=== PATIENT | female | born 1950 | race Hispanic/Latino ===

== ENCOUNTER 2018-05-07 07:15 | Day surgery (SDC) | payer OTHER ==
[2018-05-05 15:47] VITALS: BP 125/82
[2018-05-05 16:18] LABS: BASOPHILS % (AUTO) 0.4 % (0.0-5.0); EOSINOPHILS % (AUTO) 1.1 % (0.0-8.0); MEAN CORPUSCULAR HEMOGLOBIN 32.4 pg (27.0-33.0); MEAN CORPUSCULAR HGB CONC 34.4 g/dL (32.0-36.0); MEAN CORPUSCULAR VOLUME 94.3 fL (79-99); MONOCYTES % (AUTO) 4.3 % (3.0-13.0); NEUTROPHILS % (AUTO) 57.2 % (40.0-77.0); NUCLEATED RED BLOOD CELLS 0.1 % (0.0-0.19); PLATELET COUNT (AUTO) 302 K/uL (130-400); RED BLOOD CELL COUNT(AUTO) 3.93 MIL/uL (4.00-5.50); RED CELL DISTRIBUTION WIDTH 13.1 % (11.0-15.5); WHITE BLOOD COUNT (AUTO) 7.2 K/uL (4.8-10.8)
[2018-05-05 16:30] LABS: CREATININE 0.8 mg/dL (0.5-1.5); POTASSIUM 4.2 mmol/L (3.5-5.1)
[2018-05-05 16:37] LABS: APPEARANCE,URINE Clear (CLEAR); BILIRUBIN,URINE Negative (NEGATIVE); COLOR,URINE Yellow (YELLOW); GLUCOSE, URINE (UA) Negative (NEGATIVE); KETONES,URINE Negative (NEGATIVE); LEUKOCYTE ESTERASE ,URINE Negative (NEGATIVE); NITRATE,URINE Negative (NEGATIVE); OCCULT BLOOD,URINE Negative (NEGATIVE); PH,URINE 6.5 (5.0-8.0); PROTEIN,URINE Negative (NEGATIVE)
[~2018-05-07] VITALS: Ht 157.5 cm; Wt 66.9 kg
[2018-05-07] VITALS (13 sets, daily range): BP systolic 105–127; BP diastolic 65–83
[~2018-05-07 07:15] MED LIST: ATOR10TA69 PO; BENA20TA10 PO; BUPR-47 PO; GENTAMICIN 80 MG/NS 100 ML PB 100 ML IV PRN; HYDR12.530 PO; METF-444 PO
[2018-05-07] MEDS ORDERED: SODIUM CHLORIDE 0.9% 1000ML 1,000 ML IV ONE (07:55)
[2018-05-07] MEDS ORDERED: GENTAMICIN SULFATE 80 MG/2 ML VIAL ONE (07:55)
[2018-05-07] MEDS ORDERED: MITOMYCIN 40 MG VIAL ONE ×2 (08:00→10:31)
[2018-05-07] MEDS: CEFTRIAXONE SODIUM 1 GM IVP ONE ×2 (08:41→10:15)
[2018-05-07] MEDS ORDERED: DEXAMETHASONE SOD PHOSPHATE 10MG/ML 1ML VIAL ONE (09:44)
[2018-05-07] MEDS ORDERED: LIDOCAINE PF 2% 5ML ABBOJECT ONE (09:44)
[2018-05-07] MEDS ORDERED: FENTANYL CITRATE PF 50 MCG/1 ML 2ML VIAL ONE (09:44)
[2018-05-07] MEDS ORDERED: ONDANSETRON HCL 4 MG/2 ML VIAL ONE (09:44)
[2018-05-07] MEDS ORDERED: PROPOFOL 10 MG/ML 20ML VIAL IV ONE (09:44)
[2018-05-07] MEDS ORDERED: NEOSTIGMINE 5MG/5ML SYR IV ONE (09:45)
[2018-05-07] MEDS ORDERED: ROCURONIUM 10MG/1ML SYR 10 MG/ML ML ONE (09:45)
[2018-05-07] MEDS ORDERED: MIDAZOLAM HCL 1 MG/ML 2ML VIAL ONE (09:45)
[2018-05-07] MEDS ORDERED: EPHEDRINE SULFATE 50 MG/ML AMPULE ONE (10:34)
[2018-05-07] MEDS ORDERED: MEPERIDINE-PF 25 MG/ML SYG ONE (11:08)
== END 2018-05-07 12:49 | disposition home or self-care (01) ==
LOC: DAH 07:15 → SUH 07:15
PROVIDERS: ATTEND Urology
DX: C67.5 Malignant neoplasm of bladder neck (principal); I10 Essential (primary) hypertension; E11.9 Type 2 diabetes mellitus without complications; F32.9 Major depressive disorder, single episode, unspecified; Z90.710 Acquired absence of both cervix and uterus; Z87.891 Personal history of nicotine dependence; Z79.899 Other long term (current) drug therapy; K76.0 Fatty (change of) liver, not elsewhere classified; E78.00 Pure hypercholesterolemia, unspecified; I25.10 Atherosclerotic heart disease of native coronary artery without angina pectoris; Z82.49 Family history of ischemic heart disease and other diseases of the circulatory system
CPT/HCPCS: 36415; 52234; 71045; 80048; 81003; 82948 ×2; 85025; 87088; 88305; 93005; A4218; A4354; A4358; A4600; J0696; J1100; J1580; J2001; J2175; J2250; J2405; J2704; J2710; J3010; J3490; J7030; J9280

== ENCOUNTER → 2019-05-05 | Outpatient (CLI) | payer OTHER ==
[~2019-05-05] MED LIST changes: -GENTAMICIN 80 MG/NS 100 ML PB 100 ML IV PRN
== END | disposition home or self-care (01) ==
LOC: OIH 12:13
PROVIDERS: ATTEND Internal Medicine
DX: M19.042 Primary osteoarthritis, left hand (principal); M19.041 Primary osteoarthritis, right hand; M25.741 Osteophyte, right hand; M25.742 Osteophyte, left hand
CPT/HCPCS: 73130

== ENCOUNTER 2019-11-25 04:39 | Emergency (ER) | payer OTHER ==
[2019-11-25 05:31] LABS: BASOPHILS % (AUTO) 0.2 % (0.0-5.0); EOSINOPHILS % (AUTO) 0.6 % (0.0-8.0); HEMATOCRIT 36.2 % (36-48); LYMPHOCYTES % (AUTO) 11.2 % (21.0-51.0); MEAN CORPUSCULAR HEMOGLOBIN 31.9 pg (27.0-33.0); MONOCYTES % (AUTO) 3.3 % (3.0-13.0); NEUTROPHILS % (AUTO) 84.2 % (40.0-77.0); PLATELET COUNT (AUTO) 277 K/uL (130-400); RED BLOOD CELL COUNT(AUTO) 3.85 MIL/uL (4.00-5.50); RED CELL DISTRIBUTION WIDTH 12.5 % (11.0-15.5); WHITE BLOOD COUNT (AUTO) 11.9 K/uL (4.8-10.8)
[2019-11-25 05:41] LABS: APPEARANCE,URINE Clear (CLEAR); BILIRUBIN,URINE Negative (NEGATIVE); COLOR,URINE Yellow (YELLOW); GLUCOSE, URINE (UA) Negative (NEGATIVE); KETONES,URINE Negative (NEGATIVE); LEUKOCYTE ESTERASE ,URINE Trace (NEGATIVE); NITRATE,URINE Negative (NEGATIVE); OCCULT BLOOD,URINE Negative (NEGATIVE); PROTEIN,URINE Negative (NEGATIVE); UROBILINOGEN,URINE 0.2 mg/dL (0.2-1.0)
[2019-11-25 05:41] LABS: CREATININE 0.8 mg/dL (0.5-1.5); POTASSIUM 3.6 mmol/L (3.5-5.1)
[2019-11-25 05:42] LABS: INR 0.89 (0.85-1.15); PARTIAL THROMBOPLASTIN TIME 27.1 SEC (26.3-35.5); PROTHROMBIN TIME 9.7 SEC (9.6-11.6)
[2019-11-25] MEDS ORDERED: SODIUM CHLORIDE 0.9% 1000ML 2,000 ML IV ONE (05:44)
[2019-11-25 05:46] LABS: ALBUMIN 3.7 g/dL (3.5-5.0); BILIRUBIN,TOTAL 0.6 mg/dL (0.2-1.0); TOTAL PROTEIN, SERUM 8.3 g/dL (6.0-8.3)
[2019-11-25 05:47] LABS: BACTERIA,URINE Few /HPF (None Seen); RBC,URINE 0-1 /HPF (0-1)
[2019-11-25] MEDS ORDERED: IOHEXOL-350 75 ML VIAL IV ONE (06:32)
[2019-11-25] MEDS ORDERED: METRONIDAZOLE 500MG/100ML BAG 100 ML ONE (07:54)
[2019-11-25] MEDS ORDERED: LEVOFLOXACIN 500 MG TABLET ONE (07:54)
[2019-11-25] MEDS ORDERED: KETOROLAC TROMETHAMINE 30MG/ML ONE (08:10)
[2019-11-25] MEDS ORDERED: DiphenhydrAMINE HCL 50 MG/ML VIAL ONE (08:10)
[2019-11-25] MEDS ORDERED: HYDROCODONE/ACETAMINOPHEN 5/325 MG TAB ONE (08:11)
== END 2019-11-25 09:52 | disposition home or self-care (01) ==
LOC: EDH 04:39
DX: K57.92 Diverticulitis of intestine, part unspecified, without perforation or abscess without bleeding (principal); E11.9 Type 2 diabetes mellitus without complications; I10 Essential (primary) hypertension; Z90.710 Acquired absence of both cervix and uterus; Z72.0 Tobacco use
CPT/HCPCS: 36415; 74177; 80053; 81001; 82550; 83605; 83690; 84484; 85025; 85610; 85730; 87040 ×2; 87088; 93005; 96365; 96366; 96375; 99285; J1200; J1885; J3490; J7030; Q9967

== ENCOUNTER → 2023-09-29 | Outpatient (CLI) | payer OTHER ==
[~2023-09-29] MED LIST changes: +ASPI-1005 PO; -ATOR10TA69 PO; +ATOR20TA65 PO; +BENA-8 PO; -BENA20TA10 PO; -BUPR-47 PO; +CLOP-31 PO; +FAMO20TA8 PO
[2023-09-29 12:23] LABS: BASOPHILS # (AUTO) 0.03 K/uL (0.00-0.20); BASOPHILS % (AUTO) 0.5 % (0.0-5.0); EOSINOPHILS # (AUTO) 0.09 K/uL (0.00-0.70); EOSINOPHILS % (AUTO) 1.4 % (0.0-8.0); HEMATOCRIT 40.8 % (36-48); IMMATURE GRANULOCYTE ABSOLUTE 0.03 K/uL (0-1); LYMPHOCYTES # (AUTO) 2.5 K/uL (1.0-4.8); LYMPHOCYTES % (AUTO) 38.4 % (21.0-51.0); MEAN CORPUSCULAR HEMOGLOBIN 31.2 pg (27.0-33.0); MEAN CORPUSCULAR HGB CONC 32.4 g/dL (32.0-36.0); MEAN CORPUSCULAR VOLUME 96.5 fL (79-99); MONOCYTES # (AUTO) 0.4 K/uL (0.1-1.0); MONOCYTES % (AUTO) 5.5 % (3.0-13.0); NEUTROPHILS # (AUTO) 3.5 K/uL (1.8-7.7); NEUTROPHILS % (AUTO) 53.7 % (40.0-77.0); PLATELET COUNT (AUTO) 278 K/uL (130-400); RED BLOOD CELL COUNT(AUTO) 4.23 MIL/uL (4.00-5.50); WHITE BLOOD COUNT (AUTO) 6.4 K/uL (4.8-10.8)
[2023-09-29 12:29] LABS: CREATININE 0.8 mg/dL (0.5-1.5); POTASSIUM 4.2 mmol/L (3.5-5.1)
== END | disposition home or self-care (01) ==
LOC: LAB 08-07 11:25
PROVIDERS: ATTEND Internal Medicine Cardiovascular Disease
DX: I10 Essential (primary) hypertension (principal); E78.5 Hyperlipidemia, unspecified
CPT/HCPCS: 36415; 80048; 80061; 85025

== ENCOUNTER 2024-01-03 13:52 | Emergency (ER) | payer OTHER ==
[~2024-01-03] VITALS: Ht 157.5 cm; Wt 66.7 kg
[2024-01-03 15:10] LABS: BASOPHILS # (AUTO) 0.03 K/uL (0.00-0.20); BASOPHILS % (AUTO) 0.5 % (0.0-5.0); EOSINOPHILS # (AUTO) 0.06 K/uL (0.00-0.70); EOSINOPHILS % (AUTO) 1.1 % (0.0-8.0); HEMATOCRIT 36.1 % (36-48); IMMATURE GRANULOCYTE ABSOLUTE 0.01 K/uL (0-1); LYMPHOCYTES # (AUTO) 1.9 K/uL (1.0-4.8); LYMPHOCYTES % (AUTO) 32.9 % (21.0-51.0); MEAN CORPUSCULAR HGB CONC 34.6 g/dL (32.0-36.0); MEAN CORPUSCULAR VOLUME 92.3 fL (79-99); MONOCYTES # (AUTO) 0.3 K/uL (0.1-1.0); MONOCYTES % (AUTO) 4.8 % (3.0-13.0); NEUTROPHILS # (AUTO) 3.4 K/uL (1.8-7.7); NEUTROPHILS % (AUTO) 60.5 % (40.0-77.0); PLATELET COUNT (AUTO) 273 K/uL (130-400); RED BLOOD CELL COUNT(AUTO) 3.91 MIL/uL (4.00-5.50); RED CELL DISTRIBUTION WIDTH 13.1 % (11.0-15.5); WHITE BLOOD COUNT (AUTO) 5.6 K/uL (4.8-10.8)
[2024-01-03 15:20] LABS: CREATININE 0.7 mg/dL (0.5-1.0); POTASSIUM 3.8 mmol/L (3.5-5.1)
[2024-01-03 15:25] LABS: ALBUMIN 3.6 g/dL (3.5-5.0); BILIRUBIN,TOTAL 0.4 mg/dL (0.2-1.0); TOTAL PROTEIN, SERUM 8.4 g/dL (6.0-8.3)
[2024-01-03] MEDS: SOLU-MEDROL 125MG VIAL IVP ONE (16:20)
[2024-01-03] MEDS: KETOROLAC 30MG VIAL (30MG/ML) IVP ONE (16:22)
[2024-01-03 16:29] LABS: ERYTHROCYTE SEDIMENTATION RATE 45 MM/HR (0-30)
[2024-01-03] MEDS ORDERED: METH4TAB3 PO (16:52)
[2024-01-03 17:38] VITALS: BP 154/87; PULSE 77; RESP 20; O2SAT 99
== END 2024-01-03 17:49 | disposition home or self-care (01) ==
LOC: EDH 13:52
DX: M16.11 Unilateral primary osteoarthritis, right hip (principal); I10 Essential (primary) hypertension; E87.1 Hypo-osmolality and hyponatremia; E11.9 Type 2 diabetes mellitus without complications; E78.00 Pure hypercholesterolemia, unspecified; Z79.82 Long term (current) use of aspirin; Z79.84 Long term (current) use of oral hypoglycemic drugs; Z79.899 Other long term (current) drug therapy; Z90.710 Acquired absence of both cervix and uterus; Z98.890 Other specified postprocedural states
CPT/HCPCS: 99284; 96374; 96375; 80053; 85025; 85651; 36415; 73502; J2919; J1885

== ENCOUNTER → 2024-07-07 | Outpatient (CLI) | payer OTHER ==
[~2024-07-07] MED LIST changes: +METH4TAB3 PO
[2024-07-07 12:23] LABS: CHOLESTEROL 181 mg/dL (<200); HDL CHOLESTEROL 41 mg/dL (35-85); LDL DIRECT 107 mg/dL (0-99); TRIGLYCERIDES 184 mg/dL (30-200)
== END | disposition home or self-care (01) ==
LOC: LAB 08:37
PROVIDERS: ATTEND Internal Medicine Cardiovascular Disease
DX: E78.5 Hyperlipidemia, unspecified (principal)
CPT/HCPCS: 36415; 80061

== ENCOUNTER → 2024-12-27 | Outpatient (CLI) | payer OTHER | END | disposition home or self-care (01) | LOC: LAB 11:06 | PROVIDERS: ATTEND Internal Medicine Cardiovascular Disease | DX: R53.83 Other fatigue (principal); Z79.899 Other long term (current) drug therapy | CPT/HCPCS: 36415; 82306; 84443 ==

== ENCOUNTER 2025-01-25 02:29 | Observation (INO) | payer OTHER ==
[~2025-01-25] VITALS: Ht 157.5 cm; Wt 66.0 kg
[2025-01-25] VITALS (8 sets, daily range): BP systolic 145–159; BP diastolic 78–88; PULSE 72–85; RESP 16–19; TEMP 97.9–98.3; O2SAT 96–98
--- NOTE | 2025-01-25 02:47 | NUR ---
PT PLACED IN ED ROOM 12. PT PRESENTS WITH COLLAR PLACED.
--- NOTE | 2025-01-25 02:47 | NUR ---
PT CARE ASSUMED AT THIS TIME
--- NOTE | 2025-01-25 02:50 | NUR ---
PT PLACED ON BED SUTTON IN ATTEMPT TO CATCH URINE FOR URINE SAMPLE. NOT SUCESSFUL AT THIS TIME. PT TAKEN OFF BED SUTTON. PT EDUCATED ON THE IMPORTANCE OF THE URINE SAMPLE. PT VERBILIZED UNDERSTANDING OF EDUCATION.
--- NOTE | 2025-01-25 02:57 | ERN ---
ED Note History of Present Illness Stated Complaint: FALL Chief Complaint: Mechanical Fall Time Seen by MD: 02:31 Time Seen by Midlevel: 02:31 Dictation: The patient the patient is a 74-year-old female with a history of hypertension, diabetes, fight fibromyalgia who presents to the emergency department after a ground level fall. Patient reports that she has been having nonbloody diarrhea since this morning with some lower abdominal pain when she woke up around 1:30 a.m. to use the restroom. Patient reports she was washing her hands when she suddenly felt dizzy causing her to fall. Reports she hit the left side of her head on the toilet. Unknown LOC. patient denies any vomiting. Denies any use of blood thinners. Patient complaints of left-sided headache, left-sided neck pain. Reports generalized weakness Denies any chest pain. Denies any fevers. Allergies: Coded Allergies: No Known Allergies (Unverified Allergy, Unknown, 08/16/14) Home Meds Active Scripts Methylprednisolone (Medrol) 4 Mg Tab.ds.pk, 4 MG PO AD, #1 UNIT Prov:BELKIS MONTANEZ SAND DIGGER 01/03/24 Clopidogrel Bisulfate (Plavix) 75 Mg Tablet, 75 MG PO DAILY for 21 Days, #21 TAB Prov:MORGAN LOONEY SAND DIGGER 11/09/22 Famotidine (Famotidine) 20 Mg Tablet, 20 MG PO DAILY for 30 Days, #30 TAB Prov:MORGAN LOONEY NP 11/09/22 Atorvastatin Calcium (Atorvastatin Calcium) 20 Mg Tablet, 20 MG PO HS for 30 Days, #30 TAB Prov:MORGAN LOONEY NP 11/09/22 Aspirin (ASPIRIN 81MG CHEW TAB) 81 Mg Tab.chew, 81 MG PO DAILY for 30 Days, #30 TAB.CHEW Prov:MORGAN LOONEY SAND DIGGER 11/09/22 Reported Medications Benazepril HCl (Benazepril HCl) 20 Mg Tablet, 10 MG PO HS, TAB 11/06/22 Benazepril HCl (Benazepril HCl) 20 Mg Tablet, 20 MG PO DAILY, TAB 08/16/14 Metformin HCl (Metformin HCl) 500 Mg Tablet, 500 MG PO BID, TAB 08/16/14 Hydrochlorothiazide (Hydrochlorothiazide) 12.5 Mg Capsule, 12.5 MG PO DAILY, CAP 08/16/14 Past Medical History Past Medical History: Diabetes-Type II, Fibromyalgia, High Cholesterol, Heart Disease, Hypertension Additional Past Medical Hx: OA Surgical History: Hysterectomy, Other Surgical History Other: BLADDER CYST Social History: Negative History: Not Applicable RN Note Reviewed/Agreed w/PFSH: Yes Review of System Dictation Constitutional: Negative for fever,chills, and weight loss Eyes: Negative for injury, pain,redness, and discharge ENT: Negative for injury,pain or swelling Cardiovascular: Negative for chest pain, palpitations, and edema Respiratory: Negative for shortness of breath, cough, and wheezing, Abdomen/GI: Negative for , nausea, vomiting, , and constipation positive for abdominal pain, diarrhea Back: Negative for injury and pain positive for neck pain : Negative for injury, bleeding and discharge MS/Extremity: Negative for injury and deformity Skin: Negative for rash, and discoloration Neuro: Negative for numbness, tingling, and seizure positive for syncope, weakness positive for headaches Psych: Negative for suicide ideation, homicidal ideation, and hallucinations Initial Vital Sign VS Vital Signs Date Time Temp Pulse Resp B/P (MAP) Pulse Ox O2 Delivery O2 Flow Rate FiO2 01/25/25 02:31 97.3 69 18 124/70 99 Room Air 01/25/25 02:51 0 21 Physical Exam Dictation Vital Signs reviewed General Appearance: Alert, oriented x 3, no acute distress, well developed, nourished. Head and Face: non-traumatic. No hematomas noted to scalp Eyes: PERRL, pink conjunctivas, eyelid no trauma, anterior chamber with arcus senilis. Ears: Pinnas intact and no signs of trauma or erythema ear canals clear and no discharge TM no erythema Nose: No discharge, no bleeding. Oropharynx: Mouth normal, tongue pink. pharynx clear,no erythema, tonsils no exudates, no abscesses noted, mucous membrane moist Neck: Supple, non-tender, no thyromegaly, no masses, no JVD, no bruits Breast:Deferred Chest:No tenderness, no crepitus, no paradoxical movement, no retractions Lungs:Clear, well-ventilated, symmetric, no rales, no wheezing, no rhonchi, no stridor, good breath sounds bilaterally Heart: Regular rate, regular rhythm, no murmur, no gallops Vascular: no peripheral edema, Abdomen: Soft, positive bowel sounds, nondistended, no guarding, nontender, no rebound, no masses no hepatomegaly, no splenomegaly, no Amador's sign, no hernias. Rectal: Deferred Genital: Deferred Neurological: Normal speech, motor function intact, sensory function intact Musculoskeletal: Neck nontender, full range of motion, back nontender, full range of motion, Extremities: nontender, full range of motion Skin: Color pink, dry, no turgor, no rash, no lacerations, no abrasions, no contusions. Lymphatic: Deferred Results (Laboratory/Radiology) Laboratory/Radiology Laboratory Tests Test 01/25/25 02:54 01/25/25 04:43 01/25/25 04:53 White Blood Count 7.3 K/uL (4.8-10.8) Red Blood Count 3.89 MIL/uL (4.00-5.50) L Hemoglobin 12.0 g/dL (12.0-16.0) Hematocrit 36.1 % (36-48) Mean Corpuscular Volume 92.8 fL (79-99) Mean Corpuscular Hemoglobin 30.8 pg (27.0-33.0) Mean Corpuscular Hemoglobin Concent 33.2 g/dL (32.0-36.0) Red Cell Distribution Width 13.2 % (11.0-15.5) Platelet Count 293 K/uL (130-400) Mean Platelet Volume 10.3 fL (7.5-10.5) Immature Granulocyte % (Auto) 0.5 % (0-1) Neutrophils (%) (Auto) 59.0 % (40.0-77.0) Lymphocytes (%) (Auto) 34.7 % (21.0-51.0) Monocytes (%) (Auto) 4.6 % (3.0-13.0) Eosinophils (%) (Auto) 1.1 % (0.0-8.0) Basophils (%) (Auto) 0.1 % (0.0-5.0) Neutrophils # (Auto) 4.3 K/uL (1.8-7.7) Lymphocytes # (Auto) 2.5 K/uL (1.0-4.8) Monocytes # (Auto) 0.3 K/uL (0.1-1.0) Eosinophils # (Auto) 0.08 K/uL (0.00-0.70) Basophils # (Auto) 0.01 K/uL (0.00-0.20) Absolute Immature Granulocyte (auto 0.04 K/uL (0-1) Nucleated Red Blood Cells 0.0 % (0.0-0.19) Sodium Level 135 mmol/L (136-145) L Potassium Level 4.3 mmol/L (3.5-5.1) Chloride Level 97 mmol/L (101-111) L Carbon Dioxide Level 27 mmol/L (21-32) Blood Urea Nitrogen 28 mg/dL (7-18) H Creatinine 1.1 mg/dL (0.5-1.0) H Glomerular Filtration Rate Calc 53 mL/min (>90) Random Glucose 168 mg/dL (70-105) H Total Calcium 10.0 mg/dL (8.5-10.1) Total Bilirubin 0.3 mg/dL (0.2-1.0) Aspartate Amino Transf (AST/SGOT) 57 U/L (10-37) H Alanine Aminotransferase (ALT/SGPT) 55 U/L (12-78) Alkaline Phosphatase 161 U/L (50-136) H Total Creatine Kinase 141 U/L (21-232) Troponin I High Sensitivity 68 ng/L (4-50) *H 67 ng/L (4-50) *H Total Protein 8.3 g/dL (6.0-8.3) Albumin 3.9 g/dL (3.5-5.0) Lipase 123 U/L (16-77) H Urine Color LIGHT-YELLOW (YELLOW) Urine Appearance CLOUDY (CLEAR) H Urine pH 6.5 (5.0-8.0) Urine Specific [place] 1.008 (1.001-1.031) Urine Protein NEGATIVE mg/dL (NEGATIVE) Urine Glucose (UA) NEGATIVE mg/dL (NEGATIVE) Urine Ketones NEGATIVE mg/dL (NEGATIVE) Urine Occult Blood NEGATIVE (NEGATIVE) Urine Nitrate NEGATIVE (NEGATIVE) Urine Bilirubin NEGATIVE mg/dL (NEGATIVE) Urine Urobilinogen 0.2 mg/dL (0.2-1.0) Urine Leukocyte Esterase 500 Linda/uL (NEGATIVE) H Labs Reviewed?: Yes EKG Comment: 01/25/2025 TIME 3:09 A.M. VENTRICULAR RATE 77 SINUS RHYTHM [place] [address] WAVE ELEVATION OR DEPRESSION CT Scan Comment: CT HEAD AND CERVICAL SPINE-NAD CT ABDOMEN AND PELVIS- NAD ED Course ED Course Orders Procedure Category Date Status Time Cbc With Differential LAB 01/25/25 Complete 02:44 Comprehensive LAB 01/25/25 Complete Metabolic Panel 02:44 Troponin I High LAB 01/25/25 Complete Sensitivity 02:44 Urinalysis Profile LAB 01/25/25 In Process 02:44 12 Lead Ekg Tracing- EKG 01/25/25 Logged Technical 02:44 0.9%Nacl 1000ml (Ns PHA 01/25/25 In Process 1000ml) 03:00 Creatine Kinase, Total LAB 01/25/25 Complete 02:44 Ct Abdomen/Pelvis W/O CT 01/25/25 Taken Contrast 02:44 Chest 1vw RAD 01/25/25 Taken 02:44 Lipase LAB 01/25/25 Complete 02:44 Ct Head/Brain W/O CT 01/25/25 Taken Contrast 02:44 Ct Cervical Spine W/O CT 01/25/25 Taken Contrast 02:44 Troponin I High LAB 01/25/25 Complete Sensitivity 04:42 Vital Signs Every 4 CPOE 01/25/25 Transmitted Hours 05:00 I&O Q Shift CPOE 01/25/25 Transmitted 05:00 Intake And Output CPOE 01/25/25 Transmitted Every 1 Hour 05:00 Activity: Bedrest CPOE 01/25/25 Transmitted With Brp 05:00 Clear Liquid DIET 01/25/25 Transmitted Breakfast Cbc With Differential LAB 01/26/25 Verified 04:00 Basic Metabolic Panel LAB 01/26/25 Verified 04:00 Magnesium LAB 01/26/25 Verified 04:00 Phosphorus LAB 01/26/25 Verified 04:00 0.9%Nacl 1000ml (Ns PHA 01/25/25 In Process 1000ml) 05:00 Acetaminophen 325 Tab PHA 01/25/25 In Process (Tylenol 325mg Tab 05:00 Ondansetron 4mg Inj PHA 01/25/25 In Process (Zofran 4mg Inj) 05:00 Clonidine Hcl 0.1 Mg PHA 01/25/25 In Process Tablet (Catapres 0. 05:00 Hydralazine 20mg Inj PHA 01/25/25 Complete (Apresoline 20mg In 05:00 Labetalol 20mg Syg PHA 01/25/25 In Process (Trandate 20mg Syg) 05:00 Apply Scds CPOE 01/25/25 Transmitted 05:00 Turn Patient Q2hrs CPOE 01/25/25 Transmitted 05:00 Elevate Hob At 30 CPOE 01/25/25 Transmitted Degrees 05:00 Admit Orders ADM 01/25/25 Transmitted 05:00 Condition: CPOE 01/25/25 Transmitted 05:00 Telemetry Monitoring CPOE 01/25/25 Transmitted 05:00 Initiate PALOMA 01/25/25 In Process Hyperglycemia Protoco 05:00 Insulin Regular, PHA 01/25/25 In Process Human 3ml (Humulin R 07:30 Mr Brain Wo Con MRI 01/25/25 Logged 05:00 Echo 2-D Complete ECHO 01/25/25 Logged 05:00 Lipid Panel LAB 01/25/25 In Process 05:00 Thyroid Stimulating LAB 01/25/25 In Process Hormone 05:00 Hemoglobin A1c LAB 01/25/25 In Process 05:00 Culture Urine WILLIAM 01/25/25 In Process 04:43 Troponin I High LAB 01/25/25 Logged Sensitivity 09:00 Troponin I High LAB 01/25/25 Logged Sensitivity 15:00 Vital Signs Date Time Temp Pulse Resp B/P (MAP) Pulse Ox O2 Delivery O2 Flow Rate FiO2 01/25/25 02:51 97.7 73 19 119/80 97 Room Air* 0 21 01/25/25 02:31 97.3 69 18 124/70 99 Room Air Medical Decision Making [facility] MDM The patient the patient is a 74-year-old female with a history of hypertension, diabetes, fight fibromyalgia who presents to the emergency department after a ground level fall. Patient reports that she has been having nonbloody diarrhea since this morning with some lower abdominal pain when she woke up around 1:30 a.m. to use the restroom. Patient reports she was washing her hands when she suddenly felt dizzy causing her to fall. Reports she hit the left side of her head on the toilet. Unknown LOC. patient denies any vomiting. Denies any use of blood thinners. Patient complaints of left-sided headache, left-sided neck pain. Reports generalized weakness Denies any chest pain. Denies any fevers. DX & DISP Disposition: Inpatient Decision to Admit Time: 05:19 Departure Impression: Primary Impression: ACS (acute coronary syndrome) Additional Impressions: Dehydration, Viral gastroenteritis, Syncope and collapse Condition: Stable Referrals: KEM GARCIA DO (PCP) MARIA E NICHOLS January 25, 2025 02:57 RAJESH PATEL MD January 25, 2025 03:30
[2025-01-25 03:01] LABS: BASOPHILS # (AUTO) 0.01 K/uL (0.00-0.20); BASOPHILS % (AUTO) 0.1 % (0.0-5.0); EOSINOPHILS # (AUTO) 0.08 K/uL (0.00-0.70); EOSINOPHILS % (AUTO) 1.1 % (0.0-8.0); HEMATOCRIT 36.1 % (36-48); IMMATURE GRANULOCYTE ABSOLUTE 0.04 K/uL (0-1); LYMPHOCYTES # (AUTO) 2.5 K/uL (1.0-4.8); LYMPHOCYTES % (AUTO) 34.7 % (21.0-51.0); MEAN CORPUSCULAR HEMOGLOBIN 30.8 pg (27.0-33.0); MEAN CORPUSCULAR HGB CONC 33.2 g/dL (32.0-36.0); MEAN CORPUSCULAR VOLUME 92.8 fL (79-99); MONOCYTES # (AUTO) 0.3 K/uL (0.1-1.0); MONOCYTES % (AUTO) 4.6 % (3.0-13.0); NEUTROPHILS # (AUTO) 4.3 K/uL (1.8-7.7); PLATELET COUNT (AUTO) 293 K/uL (130-400); RED BLOOD CELL COUNT(AUTO) 3.89 MIL/uL (4.00-5.50); RED CELL DISTRIBUTION WIDTH 13.2 % (11.0-15.5); WHITE BLOOD COUNT (AUTO) 7.3 K/uL (4.8-10.8)
[2025-01-25 03:10] LABS: CREATININE 1.1 mg/dL (0.5-1.0); POTASSIUM 4.3 mmol/L (3.5-5.1)
[2025-01-25 03:14] LABS: ALBUMIN 3.9 g/dL (3.5-5.0); BILIRUBIN,TOTAL 0.3 mg/dL (0.2-1.0); TOTAL PROTEIN, SERUM 8.3 g/dL (6.0-8.3)
--- NOTE | 2025-01-25 03:14 | NUR ---
PT LEFT TO CT
--- NOTE | 2025-01-25 03:39 | NUR ---
PT BACK FROM CT AT THIS TIME
[2025-01-25] MEDS: 0.9%NACL 1000ML 1,000 ML IV ONE (03:40)
--- NOTE | 2025-01-25 04:50 | NUR ---
C COLLAR TAKEN OFF BY ED MD PATEL AT BEDSIDE
[2025-01-25] MEDS ORDERED: ondanSETRON 4MG INJ IVP PRN (05:00)
[2025-01-25] MEDS ORDERED: LAbetaLOL 20MG SYG IV PRN (05:00)
[2025-01-25] MEDS ORDERED: cloNIDine HCL 0.1 MG TABLET PO PRN (05:00)
[2025-01-25] MEDS ORDERED: hydrALAZine 20MG/ML VIAL IV PRN (05:00)
[2025-01-25 05:11] LABS: APPEARANCE,URINE CLOUDY (CLEAR); BILIRUBIN,URINE NEGATIVE (NEGATIVE); COLOR,URINE LIGHT-YELLOW (YELLOW); GLUCOSE, URINE (UA) NEGATIVE (NEGATIVE); KETONES,URINE NEGATIVE (NEGATIVE); LEUKOCYTE ESTERASE ,URINE 500 Leu/uL (NEGATIVE); NITRATE,URINE NEGATIVE (NEGATIVE); OCCULT BLOOD,URINE NEGATIVE (NEGATIVE); PH,URINE 6.5 (5.0-8.0); PROTEIN,URINE NEGATIVE (NEGATIVE); UROBILINOGEN,URINE 0.2 mg/dL (0.2-1.0)
[2025-01-25 05:12] LABS: ADD UA MICROSCOPIC YES
[2025-01-25 05:17] LABS: MUCUS,URINE RARE LPF (None Seen); SQUAMOUS EPITHELIAL CELL,UR RARE /HPF (0-2)
[2025-01-25 05:28] LABS: HEMOGLOBIN A1C 7.6 % (4.0-6.0)
[2025-01-25 05:39] LABS: THYROID STIMULATING HORMONE 5.15 uIU/mL (0.36-3.74)
--- NOTE | 2025-01-25 05:54 | NUR ---
REPORT GIVEN TO NED ALARCON AT THIS TIME
[2025-01-25] MEDS: 0.9%NACL 1000ML 1,000 ML IV SCH (05:57)
--- NOTE | 2025-01-25 06:34 | EKG ---
[facility] Test Date: 2025-01-25 Test Time: 03:09:54 Pat Name: SAMANTHA GODFREY Department: [facility] Room: 302 1 Gender: F Vision Mixer: [id number] : 1950 Requested By: MARIA E NICHOLS Order Number: [id number] Reading MD: Sonu Estrada Measurements Intervals [place] Rate: 77 P: 54 OK: 150 QRS: 44 QRSD: 83 T: 57 QT: 413 QTc: 466 Interpretive Statements Sinus rhythm Compared to ECG 11/06/2022 15:13:02 Atrial premature complex(es) no longer present Electronically Signed On 01-25-2025 17:33:17 CDT by Sonu Estrada Please click the below link to view image of tracing.
[2025-01-25] MEDS ORDERED: HYDR25TA PO (06:44)
--- NOTE | 2025-01-25 06:45 | NUR ---
ADMISSION NOTE RECEIVED REPORT FROM DORIAN ROWAN. PATIENT BROUGHT INTO ROOM WITH DAUGHTER AT BEDSIDE. PATIENT ASSESSED, SEE ADMISSION ASSESSMENT. PATIENT ALERT, ORIENTED, ABLE TO MAKE NEEDS KNOWN. PATIENT AND DAUGHTER UPDATED ON PLAN OF CARE. CALL LIGHT IN REACH OF PATIENT.
[2025-01-25] MEDS ORDERED: BENA40TA92 PO (06:46)
--- NOTE | 2025-01-25 08:19 | HMCIMG ---
Exam Type: CT ABDOMEN/PELVIS W/O CONTRAST Clinical Information: ABD PAIN Comparison: None CT Dose Index (CTDI): 10.20 mGy Dose Length Product (DLP): 530.00 total mGy-cm PROTOCOL: Routine noncontrast helical scanning of the abdomen and pelvis was performed at 5mm collimation. Findings: Bilateral tiny, 1 to 2 mm renal calculi are seen. There is no hydronephrosis. No worrisome renal masses are seen. The lung bases are clear. The stomach is unremarkable. It shows no wall thickening. No gross ulceration is seen. It is not overly distended. There are no surrounding inflammatory changes. No wall lesions are identified to suggest cancer. The spleen is unremarkable. It is not enlarged. The pancreas shows normal anatomy. It is not fatty replaced. It shows no lesions. The pancreatic duct is not dilated. The gallbladder is unremarkable. It shows no cholelithiasis. The gallbladder wall is normal in thickness. There is no pericholecystic fluid. The is no acute or chronic inflammation noted. The adrenal glands are unremarkable. There is no enlargement. No lesions are noted. The liver is unremarkable. It shows no focal masses. The appendix is unremarkable. It shows no evidence of inflammation. No appendicolith is seen. The small bowel is unremarkable. There is no evidence of dilatation to suggest obstruction. No evidence of adynamic ileus is seen. There is no small bowel wall thickening to suggest enteritis. There is diverticulosis. There is no evidence of acute inflammation to suggest diverticulitis. The colon is otherwise unremarkable. The urinary bladder is unremarkable. There is no wall thickening to suggest tumor or inflammation. There are no intraluminal calculi. There are no diverticula. There is no evidence of chronic bladder outlet obstruction. There is no evidence of urinary bladder distention to suggest urinary retention. The other pelvic structures are unremarkable. The bony and vascular structures are unremarkable for the patient's age. IMPRESSION: Chronic changes as noted above. No acute pathology. This study was performed using dose reduction techniques to include automated exposure control and/or adjustment of the mA and/or kV according to patient size.
--- NOTE | 2025-01-25 08:21 | HMCIMG ---
Exam Type: CT cervical spine without contrast Clinical Information: fall, headstrike Comparison: None Technique: Spiral axial images were performed from the base of the skull down to the thoracic vertebral bodies. Both sagittal and coronal reconstructions were performed. CT Dose Index (CTDI): 12.85 mGy Dose Length Product (DLP): 282.6 total Findings: There are degenerative changes. Degenerative disc disease is noted at multiple levels. There is adequate alignment and preservation of normal cervial lordosis. There is facet hypertrophy at multiple levels. IMPRESSION: Degenerative changes as noted. No acute pathology. No fractures seen. This study was performed using dose reduction techniques to include automated exposure control and/or adjustment of the mA and/or kV according to patient size.
--- NOTE | 2025-01-25 08:23 | HMCIMG ---
Exam Type: CT HEAD/BRAIN W/O CONTRAST Clinical Information: fall, headstrike Comparison: None CT Dose Index (CTDI): 57.33 mGy Dose Length Product (DLP): 956.79 total mGy-cm Findings: The examination shows atrophy. There is low attenuation throughout the periventricular white matter locations, consistent with chronic small vessel ischemic changes. No acute intra- or extra-axial fluid collections are seen. There is no evidence of acute or chronic hemorrhage. There is no mass effect or shift of midline structures. There are no areas to suggest acute infarct. The skull windows show no significant abnormalities. IMPRESSION: 1. ATROPHY AND CHRONIC SMALL VESSEL ISCHEMIC CHANGES. This study was performed using dose reduction techniques to include automated exposure control and/or adjustment of the mA and/or kV according to patient size.
--- NOTE | 2025-01-25 09:00 | HMCIMG ---
Exam Type: CHEST 1VW Clinical Information: fall Comparison: None Findings: The lungs are clear of infiltrates. The heart is normal in size. The bony and soft tissue structures of the chest are unremarkable. Impression: Clear lungs.
[2025-01-25] MEDS: INSULIN humuLIN R 100 UNIT/ML 3ML SQ SCH (09:09)
--- NOTE | 2025-01-25 09:10 | NUR ---
PATIENT TAKEN DOWN FOR MRI. NO SIGNS AND SYMPTOMS OF DISTRESS NOTED
--- NOTE | 2025-01-25 09:38 | NUR ---
DCP: HOME Pt currently lives with dgt Sonya Mosher [phone]. Pt denied insecurities with food, chcf, and/or utilities. Pt does not have DME, home health, or provider services at this time. Pt is able to complete ADLs independently. PCP is Dr. Radha Pascal and uses [facility] for any RX needs. At [place] pt will return home and family can assist with transportation. Addendum: 01/25/25 at 0940 by DEZ HORTON SS Amended: Links added.
--- NOTE | 2025-01-25 09:51 | HMCIMG ---
Exam Type: MR BRAIN WO CON Clinical Information: syncope Comparison: None Technique: T1 weighed sagittal, T1-weighted axial, T2-weighted axial, diffusion, apparent diffusion, exponential diffusion weighted axial, T2-weighted FLAIR sagittal, coronal and axial images of the brain. Findings: There is atrophy. Multiple punctate and patchy foci of increased signal T2-weighted FLAIR images scattered diffusely throughout the deep white matter centrum semiovale and coronal radiata on the T2-weighted FLAIR images consistent with chronic small vessel ischemic changes. No similar-appearing focus present within the deep white matter of the cerebellum or brainstem. The examination is otherwise unremarkable. No intra or extra axial lesions or fluid collections are seen. There are no acute infarcts. There are no acute hemorrhages. The orbital contents and structures of the posterior fossa are intact. The sella and its contents and the structures of the skull base are intact as well. Impression: Atrophy and chronic small vessel ischemic changes.
--- NOTE | 2025-01-25 11:51 | HP ---
[facility] HISTORY & PHYSICAL Date Patient Seen: January 25, 2025 Time of Visit: 11:50 Supervising Physician: [Dr. Gonzalez] Primary Care Physician: [Dr. 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 Per ED report, patient had an episode of nonbloody diarrhea prior to arrival associated with lower abdominal pain. Patient states she was sitting on the toilet with diarrhea when she suddenly felt dizzy and had an episode of sweating. She stated proceeded to wash her hands in the sink when she felt weak and sustained a fall, hitting her left side of the head on the toilet. She did not completely lose conscious, denies a history of blood thinners. She states her dizziness is improved since admission without recurrence. Has also not had anymore diarrhea. Her labs on admission were grossly unremarkable, her creatinine is 1.1. TSH was mildly elevated at 5.15. Her troponin has ranged in mid to high 60s. Per chart review, patient has had similar readings in the past consistent with chronically elevated troponin. Her CK was within normal limits. She was found to have leukocyte esterase on urinalysis, pending urine culture. She was treated with IV fluids which she continues on. Imaging on admission including CT head and CT spine as well as brain MRI were all unremarkable without acute findings. She is pending an echocardiogram.] PAST MEDICAL HX: see above PAST SURGICAL HX: noncontributory SOCIAL HISTORY: No tobacco, ETOH, or illicit drug use Coded Allergies: No Known Allergies (Unverified Allergy, Unknown, 08/16/14) REVIEW OF SYSTEMS: 12 point ROS reviewed with patient. Pertinent positives mentioned above. Otherwise negative. PHYSICAL EXAM: GENERAL: Concerned, alert, weak, awake oriented x 3, no signs of trauma to head HEENT: EOMI, Sclera non icteric, moist mucosa NECK: Supple, no JVD, trachea midline LUNGS: Clear breath sounds bilaterally. No wheezes HEART: Regular rate and rhythm. Normal S1 and S2, without murmurs ABD: Abdomen soft, nontender. Bowel sounds present EXT: No clubbing cyanosis or edema NEURO: Alert and oriented to person, follows commands Vital Signs (last 8hr) Date Time Temp Pulse Resp B/P (MAP) Pulse Ox O2 Delivery O2 Flow Rate FiO2 01/25/25 08:00 98.1 79 17 145/86 98 Room Air 01/25/25 07:18 98 Room Air* 0 21 01/25/25 06:10 98.2 85 16 146/78 98 Room Air 21 01/25/25 05:54 86 14 147/91 100 Room Air* 0 21 01/25/25 05:20 80 15 148/81 100 Room Air* 0 21 01/25/25 04:29 79 14 157/83 100 Room Air* 0 21 LABS: Hematology Labs: Test 01/25/25 02:54 Range/Units White Blood Count 7.3 4.8-10.8 K/uL Red Blood Count 3.89 L 4.00-5.50 MIL/uL Hemoglobin 12.0 12.0-16.0 g/dL Hematocrit 36.1 36-48 % Mean Corpuscular Volume 92.8 79-99 fL Mean Corpuscular Hemoglobin 30.8 27.0-33.0 pg Mean Corpuscular Hemoglobin Concent 33.2 32.0-36.0 g/dL Red Cell Distribution Width 13.2 11.0-15.5 % Platelet Count 293 130-400 K/uL Mean Platelet Volume 10.3 7.5-10.5 fL Immature Granulocyte % (Auto) 0.5 0-1 % Neutrophils (%) (Auto) 59.0 40.0-77.0 % Lymphocytes (%) (Auto) 34.7 21.0-51.0 % Monocytes (%) (Auto) 4.6 3.0-13.0 % Eosinophils (%) (Auto) 1.1 0.0-8.0 % Basophils (%) (Auto) 0.1 0.0-5.0 % Neutrophils # (Auto) 4.3 1.8-7.7 K/uL Lymphocytes # (Auto) 2.5 1.0-4.8 K/uL Monocytes # (Auto) 0.3 0.1-1.0 K/uL Eosinophils # (Auto) 0.08 0.00-0.70 K/uL Basophils # (Auto) 0.01 0.00-0.20 K/uL Absolute Immature Granulocyte (auto 0.04 0-1 K/uL Nucleated Red Blood Cells 0.0 0.0-0.19 % Chemistry Labs: Test 01/25/25 08:38 01/25/25 08:30 01/25/25 04:53 01/25/25 02:54 Range/Units Troponin I High Sensitivity 64 *H 4-50 ng/L Whole Blood Glucose 195 H 70-110 MG/DL Triglycerides Level 204 H 30-200 mg/dL Cholesterol Level 126 # <200 mg/dL LDL Cholesterol 63 0-99 mg/dL HDL Cholesterol 41 35-85 mg/dL Thyroid Stimulating Hormone (TSH) 5.15 #H 0.36-3.74 uIU/mL Sodium Level 135 L 136-145 mmol/L Potassium Level 4.3 3.5-5.1 mmol/L Chloride Level 97 L 101-111 mmol/L Carbon Dioxide Level 27 21-32 mmol/L Blood Urea Nitrogen 28 H 7-18 mg/dL Creatinine 1.1 H 0.5-1.0 mg/dL Glomerular Filtration Rate Calc 53 >90 mL/min Random Glucose 168 H 70-105 mg/dL Hemoglobin A1c 7.6 H 4.0-6.0 % Estimated Average Glucose (eAG) 171 H 70-126 mg/dL Total Calcium 10.0 8.5-10.1 mg/dL Total Bilirubin 0.3 0.2-1.0 mg/dL Aspartate Amino Transf (AST/SGOT) 57 H 10-37 U/L Alanine Aminotransferase (ALT/SGPT) 55 12-78 U/L Alkaline Phosphatase 161 H 50-136 U/L Total Creatine Kinase 141 21-232 U/L Total Protein 8.3 6.0-8.3 g/dL Albumin 3.9 3.5-5.0 g/dL Lipase 123 H 16-77 U/L DIAGNOSTICS / RADIOLOGY RESULTS: [Reviewed] PLAN NEURO: Minimize central acting medications as possible. Maintain fall precautions, adequate lighting during the day PULMONARY: Supplemental 02 as needed. Maintain aspiration precautions at all times CARDIOVASCULAR: Follow hemodynamics. Vital signs per facility protocol GI & NUTRITION: Continue with nutritional support. Continue stool softeners and laxatives as needed. KIDNEYS & ELECTROLYTES: Strict monitoring of intake, output and overall fluid balance. Avoid nephrotoxic medications to the extent possible. Medications to be dosed according to renal function. Monitor electrolytes and replace as needed ENDOCRINE: Maintain blood glucose between 100-180 at all times. Hypoglycemia protocol in place INFECTIOUS DISEASE: Trend temperature, WBC and procalcitonin level Follow cultures, deescalate antibiotics as soon as possible. Panculture if new onset fever ONCOLOGY/HEMATOLOGY/COAGULATION: Monitor for s/s of bleeding Monitor hemoglobin, coagulation studies as needed SKIN: Pressure ulcer prevention per facility protocol Specialty mattress ORTHO/REHAB: Continue PT/OT Prophylaxis: Continue GI and DVT prophylaxis Code Status: Full Resuscitation Disposition: TBD Other: MARY RAINES January 25, 2025 11:50
[2025-01-25] MEDS: cefTRIAXone 2GM VIAL IVPB SCH (15:01)
[2025-01-25] MEDS: acetaMINOPHEN 325 MG TAB PO PRN (15:31)
[2025-01-25] MEDS ORDERED: CELE-125 PO (15:50)
[2025-01-25] MEDS ORDERED: AMLO2.5T4 PO (15:50)
[2025-01-25] MEDS ORDERED: TIZA-194 PO (15:50)
--- NOTE | 2025-01-25 16:21 | HMCIMG ---
Carotid Duplex and color-flow Doppler bilateral Clinical Information: syncope Comparison: None Findings: Mild bilateral bifurcation plaque is seen. No hemodynamically significant stenosis noted. Left Internal Carotid Artery Peak Systolic Velocity (PSV), Left Internal Carotid to Common Carotid Artery peak systolic velocity ratio, Right Internal Carotid Artery Peak Systolic Velocity (PSV) and Right Internal Carotid to Common Carotid Artery peak systolic velocity ratio, are all within normal limits. External carotid artery velocities normal bilaterally. Bilateral vertebral arteries show normal velocities and waveforms with antegrade flow. Impression: No hemodynamically significant stenosis noted. NASCET CRITERIA. The degree of internal carotid artery stenosis is based on NASCET criteria. Normal is no stenosis. Mild is less than 50% stenosis. Moderate is 50-69% stenosis. Severe is 70% to 99% stenosis. Total occlusion is no detectable patent lumen.
--- NOTE | 2025-01-25 16:54 | HMCSR ---
APPROVED REPORT EXAM: Two-dimensional and M-mode echocardiogram with Doppler and color Doppler. INDICATION ICD: Syncope, STEMI 2D Dimensions RVDd3.5 cmLVEF(%)52.5 (>50%)LA ESV INDEX (BP)25.72 mL/m2 IVSd1.1 (0.7-1.1cm)FS(%)27 % LVDd4.2 (3.8-5.6cm)LA (2D)2.9 (1.6-4.0cm) PWd1.1 (0.7-1.1cm)Ao Root(2D)3.0 (2.0-3.7cm) IVSs1.1 cmLVOT diam2.0 (1.8-2.4cm) LVDs3.1 (2.5-4.0cm)IVC diam1.6 cm PWs1.2 cm Deformation Strain Apical 4-12.0 % Apical 2-16.2 % Apical 3-12.1 % Global Strain-13.4 % M-Mode Dimensions EPSS0.9 cm LA (MM)3.4 (1.6-4.0cm) Ao Root(MM)3.2 (2.0-3.7cm) Aortic Valve AoV Vmax2.1 m/Saman Peak GR17.7 mmHgLVOT Vmax1.0 m/s AoV VTI0.4 mAo Mean GR9.6 mmHgLVOT VTI0.25 m GREG (VMAX)1.52 cm2AVA (VTI) 2.0 cm2 Mitral Valve MV E Vmax92.6 cm/sDECEL Epyi016 ms MV A Spgm813.9 cm/sP 1/2 T61 ms E/A ratio0.8MVA (PHT)3.6 cm2 TDI E/E' Ncpxsw55.1E/E' Kngvfux26.1 Medial E' Peak V4.86 cm/sLateral E' Peak V7.06 cm/s Pulmonary Valve PV Vmax1.5 m/sPV VTI0.30 mPV Mean GR4.9 mmHg PV Peak GR9.3 mmHg Tricuspid Valve TR Vmax2.5 m/sRVSP22.6 mmHg TR Peak GR24.4 mmHg Left Ventricle The left ventricle is normal size. There is normal LV segmental wall motion. There is normal left gypsy tricular wall thickness. The LVEF is > 55%. Increased E/E suggestive of increased left ventricular e nd diastolic pressure. Right Ventricle The right ventricle is normal size. There is normal right ventricular wall thickness. The right ventr icular systolic function is normal. Atria The left atrium size is normal. The right atrium size is normal. Aortic Valve Aortic valve is trileaflet. Nodular calcification noted on non coronary cusp leaflet with restricted excursion. No aortic regurgitation is present. There is no aortic valvular stenosis. Mitral Valve The mitral valve is normal in structure. There is trace mitral valve regurgitation noted. There is no mitral valve stenosis. Tricuspid Valve The tricuspid valve is normal in structure. There is trace of tricuspid valve regurgitation noted. Pulmonic Valve Pulmonic valve is not well visualized. There is no pulmonic valvular regurgitation. Great Vessels The aortic root is normal in size. The IVC is normal in size and collapses >50% with inspiration. Pericardium There is no pericardial effusion. Other Information Quality : Adequate Conclusion The left ventricle is normal size. The LVEF is > 55% with normal LV segmental wall motion. Increased E/E suggestive of increased left ventricular end diastolic pressure. The right ventricular systolic function is normal. Both atria are normal in size. No hemodynamically significant valvular abnormalities. Aortic valve is calcified with no evidence of stenosis. There is no pericardial effusion.
[2025-01-25] MEDS: ketOROlac 30MG VIAL (30MG/ML) IVP PRN (18:47)
[2025-01-25] MEDS: MAGNESIUM 2GM PREMIX 50ML 50 ML IV PRN (19:00)
--- NOTE | 2025-01-25 19:32 | NUR ---
PATIENT'S FAMILY MEMBER MADE ME AWARE THAT THERE WAS A LEAK COMING FROM THE IV POLE. PATIENT'S MAGNESIUM WAS NOT SECURE TIGHTLY AND MAGNESIUM SPILLED OUT. MADE NIGHTSHIFT AWARE SO THAT SHE CAN GIVE A DOSE.
[2025-01-25] MEDS: atorVAStatin 20 MG TABLET PO SCH (20:34)
[2025-01-26 04:40] VITALS: BP 158/78; PULSE 71; RESP 18; TEMP 98
[2025-01-26 05:05] LABS: BASOPHILS # (AUTO) 0.02 K/uL (0.00-0.20); BASOPHILS % (AUTO) 0.3 % (0.0-5.0); EOSINOPHILS # (AUTO) 0.08 K/uL (0.00-0.70); EOSINOPHILS % (AUTO) 1.4 % (0.0-8.0); HEMATOCRIT 29.8 % (36-48); IMMATURE GRANULOCYTE ABSOLUTE 0.02 K/uL (0-1); LYMPHOCYTES # (AUTO) 2.1 K/uL (1.0-4.8); LYMPHOCYTES % (AUTO) 36.8 % (21.0-51.0); MEAN CORPUSCULAR HEMOGLOBIN 31.4 pg (27.0-33.0); MEAN CORPUSCULAR HGB CONC 34.2 g/dL (32.0-36.0); MEAN CORPUSCULAR VOLUME 91.7 fL (79-99); MONOCYTES # (AUTO) 0.3 K/uL (0.1-1.0); MONOCYTES % (AUTO) 5.2 % (3.0-13.0); NEUTROPHILS # (AUTO) 3.2 K/uL (1.8-7.7); PLATELET COUNT (AUTO) 231 K/uL (130-400); RED BLOOD CELL COUNT(AUTO) 3.25 MIL/uL (4.00-5.50); RED CELL DISTRIBUTION WIDTH 13.3 % (11.0-15.5); WHITE BLOOD COUNT (AUTO) 5.8 K/uL (4.8-10.8)
[2025-01-26 05:21] LABS: CREATININE 0.5 mg/dL (0.5-1.0); PHOSPHORUS 3.4 mg/dL (2.5-4.9); POTASSIUM 3.3 mmol/L (3.5-5.1)
[2025-01-26 07:40] VITALS: O2SAT 97
[2025-01-26 07:48] VITALS: BP 145/75; PULSE 70; RESP 19; TEMP 97.9
[2025-01-26] MEDS ORDERED: hydroCHLOROthiazide 25 MG TABLET PO SCH (09:00)
[2025-01-26] MEDS: ASPIRIN 81MG CHEW TAB PO SCH (09:54)
[2025-01-26] MEDS: FAMOTIDINE 20MG TAB PO SCH (09:54)
[2025-01-26] MEDS: LISINOPRIL 40 MG TABLET PO SCH (09:54)
[2025-01-26] MEDS ORDERED: AMOX-426 PO (11:08)
[2025-01-26] MEDS ORDERED: BACL5TAB PO (11:08)
--- NOTE | 2025-01-26 11:13 | DS ---
[facility] DISCHARGE SUMMARY Date Patient Seen: January 26, 2025 Time of Visit: 11:08 Supervising Physician: [Dr. Gonzalez] Primary Care Physician: [Dr. 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 Patient had an episode of nonbloody diarrhea prior to arrival associated with lower abdominal pain. She said she was sitting on the toilet with diarrhea when she suddenly felt dizzy and had an episode of sweating. When she proceeded to wash her hands in the sink, she felt weak and sustained a fall hitting her left side of the head on the toilet. She did not completely lose conscious, denies a history of blood thinners. Her labs on admission were grossly unremarkable, but did have STACEY with her creatinine at 1.1. TSH was mildly elevated at 5.15. Her troponin has ranged in mid to high 60s. Per chart review, patient has had simil ar readings in the past consistent with chronically elevated troponin. Her CK was within normal limits. She was found to have leukocyte esterase on urinalysis, with group B strep on urine culture. She was treated with IV fluids and antibiotics with rocephin. Imaging on admission including CT head and CT spine as well as brain MRI were all unremarkable without acute findings. Her echocardiogram and carotid doppler were unremarkable. She was discharged in stable condition to continue Augmentin upon discharge. Advised to follow up with her PCP for repeat UA. Patient did not obtain orthostatic vitals prior to discharge, advised to follow up with the PCP for the same. DISCHARGE MEDICATIONS: As listed below. Pt hemodynamically stable and afebrile at time of discharge. PCP notified of patients admission, hospital course and discharge. New Medications: Amoxicillin/Potassium Clav (Augmentin 500-125 Tablet) 500 Mg-125 Mg Tablet 1 TAB PO BID for 5 Days, #10 TAB 0 Refills Baclofen (Baclofen) 5 Mg Tablet 5 MG PO HSPRN PRN for PAIN, #7 TAB Continued Medications: Amlodipine Besylate (Amlodipine Besylate) 2.5 Mg Tablet 1 TAB PO DAILY Aspirin (Aspirin 81MG Chew Tab) 81 Mg Tab.chew 81 MG PO DAILY for 30 Days, #30 TAB.CHEW Atorvastatin Calcium (Atorvastatin Calcium) 20 Mg Tablet 20 MG PO HS for 30 Days, #30 TAB Benazepril HCl (Benazepril HCl) 40 Mg Tablet 1 TAB PO DAILY for 30 Days, #30 TAB 0 Refills Celecoxib (Celecoxib) 200 Mg Capsule 1 CAP PO BID Famotidine (Famotidine) 20 Mg Tablet 20 MG PO DAILY for 30 Days, #30 TAB Hydrochlorothiazide (Hydrochlorothiazide) 25 Mg Tablet 1 TAB PO DAILY for 30 Days, #30 TAB 0 Refills Metformin HCl (Metformin HCl) 500 Mg Tablet 500 MG PO BID, TAB Tizanidine HCl (Tizanidine HCl) 2 Mg Tablet 1 TAB PO HS PHYSICAL EXAM: GENERAL: Concerned, alert, weak, awake oriented x 3, no signs of trauma to head HEENT: EOMI, Sclera non icteric, moist mucosa NECK: Supple, no JVD, trachea midline LUNGS: Clear breath sounds bilaterally. No wheezes HEART: Regular rate and rhythm. Normal S1 and S2, without murmurs ABD: Abdomen soft, nontender. Bowel sounds present EXT: No clubbing cyanosis or edema NEURO: Alert and oriented to person, follows commands FOLLOW-UP: Repeat UA with PCP. F/U with PCP for review of orthostatic vitals signs. Complete antibiotics with augmentin upon discharge. Maintain adequate hydration. RECOMMENDATIONS: See Discharge Instructions This case was seen and discussed with my supervising physician. More than 30 minutes spent on discharge process, including evaluation of the patient, discussion with nursing staff, medication reconciliation and follow-up appointments MARY RAINES January 26, 2025 11:13
[2025-01-26] MEDS: PoTASSium chloRIDE 20MEQ ER 20 MEQ ERTAB PO ONE (11:49)
[2025-01-26] MEDS: BACLOFEN 10 MG TABLET PO PRN (11:49)
== END 2025-01-26 13:35 | disposition home or self-care (01) ==
LOC: EDH 02:29 → EDHIP 02:30 → 3AH 05:50
PROVIDERS: ADMIT Internal Medicine; ATTEND Internal Medicine
DX: R55 Syncope and collapse (principal); N17.9 Acute kidney failure, unspecified; E86.0 Dehydration; A08.4 Viral intestinal infection, unspecified; I24.9 Acute ischemic heart disease, unspecified; I21.4 Non-ST elevation (NSTEMI) myocardial infarction; E03.8 Other specified hypothyroidism; E11.9 Type 2 diabetes mellitus without complications; M79.7 Fibromyalgia; E78.00 Pure hypercholesterolemia, unspecified; I10 Essential (primary) hypertension; Z86.73 Personal history of transient ischemic attack (TIA), and cerebral infarction without residual deficits; Z79.899 Other long term (current) drug therapy; Z90.710 Acquired absence of both cervix and uterus; W18.39XA Other fall on same level, initial encounter; Y93.89 Activity, other specified; Y92.89 Other specified places as the place of occurrence of the external cause; Y99.8 Other external cause status
CPT/HCPCS: 96361 ×3; 96365; 96366 ×2; 96375; 96367; 99285; 83036; 84443; 82550; 83735 ×2; 84484 ×4; 80061; 80053; 83690; 85025 ×2; 87086 ×2; 87186; 82948 ×5; 81001; 36415 ×2; 71045; 70450; 72125; 74176; 93306; 93356; 93880; 70551; 97161; 97116; 97530 ×2; 93005; 96376; 84100; 80048; G0378 ×30; J3475 ×2; J0696; J1885 ×3; J1815 ×2